=== PATIENT | female | born 1945 | race Caucasian/White ===

== ENCOUNTER → 2024-04-04 13:03 | Outpatient (REF) | payer MEDICARE, SELFPAY | LOC: HWWDC 13:03 | PROVIDERS: ATTENDING PHYSICIAN Internal Medicine | DX: Z12.31 Encounter for screening mammogram for malignant neoplasm of breast (principal) | CPT/HCPCS: 77063; 77067 ==

== ENCOUNTER → 2025-03-07 15:21 | Outpatient (REF) | payer MEDICARE, SELFPAY | LOC: CLAB 15:21 | PROVIDERS: ATTENDING PHYSICIAN Surgery | DX: L72.9 Follicular cyst of the skin and subcutaneous tissue, unspecified (principal) | CPT/HCPCS: 88304 ==

== ENCOUNTER → 2025-04-10 14:34 | Outpatient (REF) | payer MEDICARE, SELFPAY | LOC: HWWDC 14:34 | PROVIDERS: ATTENDING PHYSICIAN Nurse Practitioner Primary Care | DX: Z12.31 Encounter for screening mammogram for malignant neoplasm of breast (principal) | CPT/HCPCS: 77063; 77067 ==

== ENCOUNTER → 2025-09-19 14:33 | Outpatient (REF) | payer MEDICARE, SELFPAY | LOC: WDC 14:33 | PROVIDERS: ATTENDING PHYSICIAN Nurse Practitioner Primary Care | DX: R92.30 Dense breasts, unspecified (principal) | CPT/HCPCS: 76641 ==

== ENCOUNTER → 2025-10-02 12:43 | Outpatient (REF) | payer MEDICARE, SELFPAY | LOC: HWLAB 12:43 | PROVIDERS: ATTENDING PHYSICIAN Internal Medicine Rheumatology; FAMILY PHYSICIAN Nurse Practitioner Primary Care | DX: D80.1 Nonfamilial hypogammaglobulinemia (principal); M81.0 Age-related osteoporosis without current pathological fracture; M25.511 Pain in right shoulder; M25.552 Pain in left hip | CPT/HCPCS: 73030; 73523 ==